=== PATIENT | female | born 1990 | race American Indian/Alaskan Native ===

== ENCOUNTER 2017-09-23 09:22 | Inpatient (IN) | payer MEDICAID ==
[2017-09-23] MEDS ORDERED: SUBLIMAZE IV PRN (10:07)
[2017-09-23] MEDS ORDERED: ZOFRAN IV PRN (10:07)
[2017-09-23] MEDS ORDERED: MINERAL OIL PO PRN (10:07)
[2017-09-23] MEDS ORDERED: ePHEDrine SULFATE IV PRN (10:07)
[2017-09-23] MEDS ORDERED: BRETHINE SUB-Q PRN (10:13)
[2017-09-23 10:46] LABS: Hematocrit 36.2 % (30.3-42.9); Hemoglobin 12.5 gm/dl (10.1-14.3); Mean Corpuscular HGB Conc 35 % (30-34); Mean Corpuscular Hemoglobin 28 pg (28-32); Mean Corpuscular Volume 82 fl (79-97); Platelet Count 243 K/mm3 (140-440); Red Blood Count 4.44 M/mm3 (3.65-5.03); Red Cell Distribution Width 13.3 % (13.2-15.2)
--- NOTE | 2017-09-23 10:57 | History and Physical Report ---
History of Present Illness Date of examination: 09/23/17 Date of admission: 09/23/17 09:23 Chief complaint: labor History of present illness: , denies complications with 2014, 5#14oz - denies complications no surgical hx no medical hx no hx STIs records from Dr. Mitchell show care starting @ 39 weeks (09/16/17) - scanned into chart. 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: cancer, chlamydia, gonorrhea, hepatitis B, hepatitis C, herpes, HIV, syphilis, trichomonas Social history: single - Obstetrical History Expected Date of Delivery: 09/22/17 Actual Gestation: 40 Week(s) 1 Day(s) : 2 Para: 1 Hx # Term Pregnancies: 1 Number of Pregnancies: 0 Spontaneous Abortions: 0 Induced : 0 Number of Living Children: 1 Medications and Allergies Allergies Allergy/AdvReac Type Severity Reaction Status Date / Time No Known Allergies Allergy Unverified 09/23/17 09:25 Home Medications Medication Instructions Recorded Confirmed Last Taken Type Loratadine/Pseudoephedrine 1 each PO DAILY 09/23/17 09/23/17 09/23/17 08:00 History [Loratadine-D 24Hr Tablet] Active Meds: Active Medications Ephedrine Sulfate (Ephedrine Sulfate) 10 mg IV Q2M PRN PRN Reason: Hypotension Fentanyl (Sublimaze) 100 mcg IV Q2H PRN PRN Reason: Labor Pain Last Admin: 09/23/17 10:52 Dose: 100 mcg Ampicillin Sodium (Polycillin/Ns 2 Gm/100 Ml) 2 gm in 100 mls @ 100 mls/hr IV ONCE ONE PRN Reason: Protocol Stop: 09/23/17 11:59 Ampicillin Sodium (Polycillin/Ns 1 Gm/50 Ml) 1 gm in 50 mls @ 100 mls/hr IV Q4H QUIRINO PRN Reason: Protocol Lactated Ringer's (Lactated Ringers) 1,000 mls @ 125 mls/hr IV DIRECT QUIRINO Oxytocin/Sodium Chloride (Pitocin/Ns 20 Unit/1000ml Drip) 20 units in 1,000 mls @ 125 mls/hr IV DIRECT QUIRINO Lidocaine (Xylocaine 2%) 20 ml INFILTRATI ONCE ONE Stop: 09/23/17 11:01 Mineral Oil (Mineral Oil) 30 ml PO QHS PRN PRN Reason: Constipation Ondansetron HCl (Zofran) 4 mg IV Q8H PRN PRN Reason: Nausea And Vomiting Terbutaline Sulfate (Brethine) 0.25 mg SUB-Q ONCE PRN PRN Reason: Hyperstimulation/Hypertonicity Review of Systems All systems: negative - Vital Signs Vital signs: Vital Signs Temp Pulse Resp BP Pulse Ox 98.1 F 89 18 110/66 99 09/23/17 09:25 09/23/17 09:25 09/23/17 09:25 09/23/17 09:25 09/23/17 09:25 Temp Pulse Resp BP Pulse Ox 98.1 F 81 18 109/65 97 09/23/17 09:25 09/23/17 10:58 09/23/17 10:52 09/23/17 10:51 09/23/17 10:58 - Physical Exam Breasts: Positive: normal Cardiovascular: Regular rate Lungs: Positive: Clear to auscultation, Normal air movement Abdomen: Positive: normal appearance, soft, normal bowel sounds Genitourinary (Female): Positive: normal external genitalia, normal perenium Vulva: both: normal Vagina: Positive: normal moisture Uterus: Positive: normal size, normal contour Anus/Rectum: Positive: normal perianal skin Extremities: Positive: normal - Obstetrical FHR: auscultation normal Uterine Contraction Monitor Mode: External Cervical Dilatation: 7 (per RN, mec fluid) Uterine Contraction Pattern: Regular Uterine Tone Measurement Phase: Contraction Uterine Contraction Intensity: Moderate Results Result Diagrams: 09/23/17 10:06 Abnormal lab results 09/23/17 Range/Units 10:06 WBC 12.7 H (4.5-11.0) K/mm3 MCHC 35 H (30-34) % All other labs normal. Assessment and Plan 27y/o @ 40+1, active labor with mec stained fluid. received care with at [facility]. records received - GBS unknown. Anticipate . Admission orders in chart. Dr Ramos consulted. - Patient Problems (1) 40 weeks gestation of Current Visit: Yes Status: Acute (2) Active labor at term Current Visit: Yes Status: Acute (3) Insufficient care Current Visit: Yes Status: Acute Qualifiers: Trimester: third trimester Qualified Code(s): O09.33 - Supervision of with insufficient care, third trimester
[2017-09-23] MEDS ORDERED: LACTATED RINGERS 1,000 ML IV SCH (11:00)
[2017-09-23] MEDS ORDERED: XYLOCAINE 2% INFILTRATI ONE (11:00)
[2017-09-23] MEDS ORDERED: PITOCin/NS 20 UNIT/1000ML DRIP 20 UNITS/1,000 ML BAG IV SCH ×2 (11:00→14:34)
[2017-09-23] MEDS ORDERED: POLYCILLIN/NS 2 GM/100 ML 2 GM/100 ML BAG IV ONE (11:00)
[2017-09-23 11:27] LABS: Amphetamine Screen,Urine PRESUMPTIVE NEGATIVE; Benzodiazepines Screen,Urine PRESUMPTIVE NEGATIVE; Cocaine Screen,Urine PRESUMPTIVE NEGATIVE; Methadone Screen,Urine PRESUMPTIVE NEGATIVE; Opiate Screen,Urine PRESUMPTIVE NEGATIVE
--- NOTE | 2017-09-23 11:44 | Procedure Note ---
OB Delivery Note - Delivery Date of Delivery: 09/23/17 ( male) [employer] Warm Up: MICHAEL BEVERLY Estimated blood loss: 200cc - Vaginal Delivery presentation: vertex Delivery position: OA (ELIZABETH) Intrapartum events: meconium Delivery induction: none Delivery monitor: external FHT, external uterine Route of delivery: Indicators for instrumentation: nonreassuring FHR tracing Delivery placenta: spontaneous Delivery cord: 3 umbilical vessels Episiotomy: none Delivery laceration: none Anesthesia: none Delivery comments: viable male del over intact perineum, ELIZABETH, shoulder delivered with next push - no shoulder dystocia. Cord clamped twice and cut, infant handed off to NICU for assessment d/t thick mec. No lacerations. placenta del intact and complete. ELB 200. Baby's wt 6#4oz. apgars 8/9, mother and remain LDR stable. - Infant A at 1 minute: 8 at 5 minutes: 9 Infant Gender: Male (6#4oz)
[2017-09-23 11:49] LABS: Cannabinoid Screen,Urine PRESUMPTIVE POSITIVE
[2017-09-23] MEDS ORDERED: MILK OF MAGNESIA PO PRN (14:34)
[2017-09-23] MEDS ORDERED: SODIUM CHLORIDE FLUSH SYRINGE 10 ML IV NR (14:34)
[2017-09-23] MEDS ORDERED: TYLENOL PO PRN (14:34)
[2017-09-23] MEDS ORDERED: BENADRYL PO PRN (14:34)
[2017-09-23] MEDS ORDERED: DULCOLAX PR PRN (14:34)
[2017-09-23] MEDS ORDERED: TUCKS PAD TP PRN (14:34)
[2017-09-23] MEDS ORDERED: PHENERGAN PO PRN (14:34)
[2017-09-23] MEDS ORDERED: LANSINOH TP PRN (14:34)
[2017-09-23] MEDS ORDERED: POLYCILLIN/NS 1 GM/50 ML 1 GM/50 ML BAG IV SCH (15:00)
[2017-09-23] MEDS: MOTRIN PO SCH (18:10)
[2017-09-24 00:14] LABS: Hematocrit 30.3 % (30.3-42.9); Hemoglobin 10.2 gm/dl (10.1-14.3)
[2017-09-24] MEDS: MOTRIN PO SCH ×4 (02:15→20:56)
[2017-09-24] MEDS ORDERED: BOOSTRIX IM ONE (06:00)
--- NOTE | 2017-09-24 07:54 | Progress Note ---
Assessment and Plan patient resting w/o complaints, . Ralph boyd, VSSAF, H&H 10.2/30.3. GBS unknown so will need to stay x48hrs, plan on d/c home tomorrow. - Patient Problems (1) Insufficient care Current Visit: Yes Status: Acute Qualifiers: Trimester: third trimester Qualified Code(s): O09.33 - Supervision of with insufficient care, third trimester (2) (normal spontaneous vaginal delivery) Current Visit: Yes Status: Acute Subjective - Subjective Date of service: 09/24/17 Principal diagnosis: day #1 s/p Interval history: , denies complications with 2014, 5#14oz - denies complications no surgical hx no medical hx no hx STIs records from Dr. Mitchell show care starting @ 39 weeks (09/16/17) - scanned into chart. Patient reports: appetite normal, voiding normally, pain well controlled, ambulating normally, no dizzy ambulation, no nauseated [place]: doing well, nursing well Objective - Vital Signs Latest vital signs: Vital Signs Temp Pulse Resp BP BP Pulse Ox 09/24/17 02:15 18 09/24/17 01:25 98.0 F 89 18 102/85 98 09/23/17 22:28 16 09/23/17 21:58 16 09/23/17 20:50 97.8 F 86 18 96/61 98 09/23/17 17:00 98.7 F 95 H 16 110/71 09/23/17 13:30 97.7 F 69 20 104/61 09/23/17 12:43 84 103/66 09/23/17 12:28 81 107/70 09/23/17 12:13 78 105/63 09/23/17 11:43 87 113/68 09/23/17 11:23 88 98 09/23/17 11:18 87 99 09/23/17 11:13 79 98 09/23/17 11:08 72 99 09/23/17 11:03 73 98 09/23/17 11:00 86 94 09/23/17 10:58 81 97 09/23/17 10:53 79 99 09/23/17 10:52 18 09/23/17 10:51 80 109/65 09/23/17 09:58 89 99 09/23/17 09:53 90 98 09/23/17 09:48 83 97 09/23/17 09:43 86 99 09/23/17 09:38 87 97 09/23/17 09:25 98.1 F 89 18 110/66 99 Intake and Output 09/23/17 09/23/17 09/24/17 15:59 23:59 07:59 Intake Total 240 480 Output Total 900 800 Balance -660 -320 Intake: Oral 240 480 Output: Urine 900 800 Void 900 800 Other: Total, Intake Amount 240 240 Total, Output Amount 400 800 # Voids Void 1 Weight 61.689 kg Estimated Blood Loss 200 - Exam Breasts: Present: normal, Cardiovascular: Present: Regular rate Lungs: Present: Clear to auscultation, Normal air movement Abdomen: Present: normal appearance, soft Vulva: both: normal Uterus: Present: normal, firm, fundal height at umbilicus Extremities: Present: normal - Labs Labs: Abnormal lab results 09/23/17 Range/Units 10:06 WBC 12.7 H (4.5-11.0) K/mm3 MCHC 35 H (30-34) %
[2017-09-24] MEDS ORDERED: PRENATAL VITAMIN PO SCH (10:00)
[2017-09-24] MEDS ORDERED: Fluarix Quad 2017-2018(36 MOS+ IM ONE (12:00)
[2017-09-25] MEDS: MOTRIN PO SCH ×4 (02:30→14:58)
--- NOTE | 2017-09-25 09:54 | Discharge Summary ---
Providers - Providers Date of Admission: 09/23/17 09:23 Date of discharge: 09/25/17 (pt agrees to d/c ) Attending physician: PINEDA CHARLES 09/23/17 14:34 Consult to Lead Assembler [CONS] Routine Reason For Exam: assistance with , SNS 09/24/17 07:54 Consult to Case Management [CONS] Routine Services Needed at Discharge: Sales Assistant [employer] Comment:: +THC, insufficent care Primary care physician: PINEDA CHARLES Hospitalization Reason for admission: active labor Delivery: Episiotomy: none Laceration: none Incision: normal Other procedures: none complications: none Discharge diagnosis: IUP at term delivered [place] baby: male Hospital course: uncomplicated vaginal delivery no care Pt w/o complaint VSS FF below umb Lochia small perineum intact H&H 10/ drop r/ t blood loss from delivery Pt w/o s/sx of anemia Doing well s/p vag delivery P: d/c today pt desires to f/u PP with [facility] Information given to pt. Instructions for son's circumcision reviewed. Pt voiced understanding. RX in Chart. Pt desires DEPO for BC. Condition at discharge: Good Disposition: DC-01 TO HOME OR SELFCARE - Discharge Diagnoses (1) (normal spontaneous vaginal delivery) Status: Acute Comment: RTO 4 weeks PP care Plan - Discharge Medications Prescriptions: Ibuprofen [Motrin 800 MG tab] 800 mg PO Q8HR PRN #30 tablet PRN Reason: Pain Lidocain2.5%/Prilocai2.5% [Emla] 5 gm TP ONCE PRN #1 tube PRN Reason: Pain - Provider Discharge Summary Activity: routine, no sex for 6 weeks, no heavy lifting 4 weeks, no strenuous exercise Diet: routine Instructions: routine Additional instructions: [] Smoking cessation referral if applicable(refer to patient education folder for contact #) [] Refer to [facility] Booklet Call your doctor immediately for: * Fever > 100.5 * Heavy vaginal bleeding ( >1 pad per hour) * Severe persistent headache * Shortness of breath * Reddened, hot, painful area to leg or breast * Drainage or odor from incision. * Keep incision clean and dry at all times and follow doctor's instructions regarding bathing/showering - Follow up plan Follow up: PINEDA CHARLES MD [Primary Care Provider] - 7 Days (Congratulations! Please call [phone] to schedule your visit in 4 weeks and your son's circumcision in 1 week. Bring the EMLA cream with you to his visit. Do NOT use at home Call with any concerns. [place], [address], [address], [place] [address]) Forms: [facility] Discharge Summary
[2017-09-25] MEDS ORDERED: DEPO-PROVERA (CONTRACEPTION) IM NR ×2 (11:00→14:00)
[2017-09-25 18:11] VITALS: BP 106/72
== END 2017-09-25 16:55 | disposition home or self-care (01) | DRG 775 ==
LOC: TRG 09:22 → LD 09:23 → TRG 09:32 → OB 14:29
PROVIDERS: ADMIT Obstetrics & Gynecology; ATTEND Obstetrics & Gynecology
PROC: 10E0XZZ Delivery of Products of Conception, External Approach (ICD-10-PCS; principal; 2017-09-23)
PROC: 3E0234Z Introduction of Serum, Toxoid and Vaccine into Muscle, Percutaneous Approach (ICD-10-PCS; 2017-09-24)
DX: O77.0 Labor and delivery complicated by meconium in amniotic fluid (principal); O76 Abnormality in fetal heart rate and rhythm complicating labor and delivery; Z37.0 Single live birth; Z3A.40 40 weeks gestation of pregnancy; Z23 Encounter for immunization
CPT/HCPCS: 36415; 80307; 85014; 85018; 85027; 86592; 86850; 86900; 86901; 90686; 99211; A6250; G0463; J0290; J1050; J2590; J3010; J7120

== ENCOUNTER 2019-07-07 15:19 | Emergency (ER) | payer MEDICAID ==
--- NOTE | 2019-07-07 19:00 | Emergency Department Report ---
ED ENT HPI - General Chief complaint: Dental/Oral Stated complaint: TOOTHACHE Time Seen by Provider: 07/07/19 17:50 Source: patient Mode of arrival: Ambulatory Limitations: No Limitations - History of Present Illness Initial comments: This is a pleasant 29 yo female who presents to the ED with a chief complaint of left upper dental pain that started 2 days prior. Pain is located to the left upper side. She reports her pain is a 8/10, described as sharp and stabbing and non-radiating. She denies any injuries, fever, chills, night sweats, swelling or any other related symptoms. MD complaint: tooth pain - Related Data Previous Rx's Medication Instructions Recorded Last Taken Type Penicillin V Potassium 500 mg PO QID 10 Days #40 tablet 07/07/19 Unknown Rx traMADoL [Ultram 50 MG tab] 50 mg PO Q4HR PRN 2 Days #8 tablet 07/07/19 Unknown Rx Allergies Allergy/AdvReac Type Severity Reaction Status Date / Time No Known Allergies Allergy Unverified 09/23/17 09:25 ED Dental HPI - General Chief complaint: Dental/Oral Stated complaint: TOOTHACHE Time Seen by Provider: 07/07/19 17:50 Source: patient Mode of arrival: Ambulatory Limitations: No Limitations - Related Data Previous Rx's Medication Instructions Recorded Last Taken Type Penicillin V Potassium 500 mg PO QID 10 Days #40 tablet 07/07/19 Unknown Rx traMADoL [Ultram 50 MG tab] 50 mg PO Q4HR PRN 2 Days #8 tablet 07/07/19 Unknown Rx Allergies Allergy/AdvReac Type Severity Reaction Status Date / Time No Known Allergies Allergy Unverified 09/23/17 09:25 ED Review of Systems ROS: Stated complaint: TOOTHACHE Other details as noted in HPI Comment: All other systems reviewed and negative Constitutional: denies: chills, fever Eyes: denies: eye pain, eye discharge, vision change ENT: dental pain. denies: ear pain, throat pain Respiratory: denies: cough, shortness of breath, wheezing Cardiovascular: denies: chest pain, palpitations Endocrine: no symptoms reported Gastrointestinal: denies: abdominal pain, nausea, diarrhea Genitourinary: denies: urgency, dysuria, discharge Musculoskeletal: denies: back pain, joint swelling, arthralgia Skin: denies: rash, lesions Neurological: denies: headache, weakness, paresthesias Psychiatric: denies: anxiety, depression Hematological/Lymphatic: denies: easy bleeding, easy bruising ED Past Medical Hx - Past Medical History Previous Medical History?: Yes Hx Hypertension: No Hx Congestive Heart Failure: No Hx Diabetes: No Hx Deep Vein Thrombosis: No Hx Renal Disease: No Hx Sickle Cell Disease: No (trait) Hx Seizures: No Hx Asthma: No Hx COPD: No Hx HIV: No - Surgical History Past Surgical History?: No - Social History Smoking Status: Never Smoker Substance Use Type: None - Medications Home Medications: Home Medications Medication Instructions Recorded Confirmed Last Taken Type Penicillin V Potassium 500 mg PO QID 10 Days #40 tablet 07/07/19 Unknown Rx traMADoL [Ultram 50 MG tab] 50 mg PO Q4HR PRN 2 Days #8 tablet 07/07/19 Unknown Rx ED Physical Exam - General Limitations: No Limitations General appearance: alert, in no apparent distress - Head Head exam: Present: atraumatic, normocephalic - Eye Eye exam: Present: normal appearance - ENT ENT exam: Present: mucous membranes moist, other (multiple dental caries, tooth 14 with fracture, no abscess, trismus, peritonsilar or retropharyngeal edema. ) - Neck Neck exam: Present: normal inspection - Respiratory Respiratory exam: Present: normal lung sounds bilaterally. Absent: respiratory distress - Cardiovascular Cardiovascular Exam: Present: regular rate, normal rhythm. Absent: systolic murmur, diastolic murmur, rubs, gallop - GI/Abdominal GI/Abdominal exam: Present: soft, normal bowel sounds - Extremities Exam Extremities exam: Present: normal inspection - Back Exam Back exam: Present: normal inspection - Neurological Exam Neurological exam: Present: alert, oriented X3 - Psychiatric Psychiatric exam: Present: normal affect, normal mood - Skin Skin exam: Present: warm, dry, intact, normal color. Absent: rash ED Course Vital Signs 07/07/19 15:50 Temperature 98.1 F Pulse Rate 88 Respiratory 18 Rate Blood Pressure 118/73 O2 Sat by Pulse 100 Oximetry ED Medical Decision Making - Medical Decision Making patient presented with dental pain. no abscess or avulsion. airway is clear. no fever, dysphonia or drooling. Tolerating secreations well. Will treat with penicillin vk 500 mg QID x 10 days and tramadol for pain. Return precautions given for changing or worsening symptoms, difficulty swallowing or breathing or any other changing symptoms. Follow up with dentist MUNIRA. - Differential Diagnosis abscess, dental caries, tonsillitis Critical care attestation.: If time is entered above; I have spent that time in minutes in the direct care of this critically ill patient, excluding procedure time. ED Disposition Clinical Impression: Pain due to dental caries Disposition: TO HOME OR SELFCARE Is pt being admited?: No Does the pt Need Aspirin: No Condition: Stable Instructions: Toothache (ED) Prescriptions: Penicillin V Potassium 500 mg PO QID 10 Days #40 tablet traMADoL [Ultram 50 MG tab] 50 mg PO Q4HR PRN 2 Days #8 tablet PRN Reason: Pain Time of Disposition: 19:02
[2019-07-07 20:05] VITALS: BP 117/63
== END 2019-07-07 19:42 | disposition home or self-care (01) ==
LOC: ED 15:19
DX: K02.9 Dental caries, unspecified (principal); Z79.899 Other long term (current) drug therapy